=== PATIENT | male | born 1995 | race Caucasian/White ===

== ENCOUNTER 2020-01-26 13:54 | Emergency (ER) | payer OTHER ==
[~2020-01-26] VITALS: Ht 180.3 cm; Wt 75.0 kg
[2020-01-26] MEDS ORDERED: NAPROXEN 500 MG TABLET PO STA (14:52)
--- NOTE | 2020-01-26 14:56 | PHYS DOC ---
Past Medical History Past Medical History: No Pertinent History Past Surgical History: Tonsillectomy Smoking Status: Current Every Day Smoker Alcohol Use: None General Adult EDM: Chief Complaint: LACERATION/AVULSION HPI: HPI: Patient is a 24 year old male who presents to the emergency department via EMS with complaints of a laceration to his left thumb. Patient states he was using a box knife while he was at work when he accidentally cut his thumb. He denies any numbness, or tingling of the affected finger. He reports increased pain with range of motion. Patient currently rates his pain a 7 out of 10 on the pain scale, the pain is worse with movement, there are no alleviating factors. He denies taking any medications prior to arrival for relief of pain. Review of Systems: Review of Systems: Constitutional: Denies fever or chills. [] Musculoskeletal: See HPI Integument: See HPI Neurologic: Denies headache, focal weakness or sensory changes. [] Psychiatric: Denies depression or anxiety. [] Heart Score: Risk Factors: Risk Factors: DM, Current or recent (<one month) smoker, HTN, HLP, family history of CAD, obesity. Risk Scores: Score 0 - 3: 2.5% MACE over next 6 weeks - Discharge Home Score 4 - 6: 20.3% MACE over next 6 weeks - Admit for Clinical Observation Score 7 - 10: 72.7% MACE over next 6 weeks - Early Invasive Strategies Allergies: Allergies: Allergies Coded Allergies Type Severity Reaction Last Updated Verified No Known Drug Allergies 01/26/20 No Physical Exam: PE: Constitutional: Well developed, well nourished, no acute distress, non-toxic appearance, anxious. [] HENT: Normocephalic, atraumatic, bilateral external ears normal, nose normal. [] Eyes: PERRLA, EOMI, conjunctiva normal, no discharge. [] Neck: Normal range of motion, no stridor. [] Cardiovascular:Heart rate regular rhythm Lungs & Thorax: Respirations even and unlabored, no retractions, no respiratory distress Skin: Warm, dry, no erythema, no rash; 3 cm laceration to the proximal portion of the palmar first digit, no obvious deformity, no visible foreign body, full extension and flexion of the affected digit.. [] Extremities: No cyanosis, ROM intact, no edema. [] Neurologic: Alert and oriented X 3, no focal deficits noted. [] Psychologic: Affect normal, judgement normal, mood normal. [] Current Patient Data: Vital Signs: Vital Signs Date Time Temp Pulse Resp B/P (MAP) Pulse Ox O2 Delivery O2 Flow Rate FiO2 01/26/20 14:17 97.5 74 18 110/69 (83) 100 Room Air 97.5 EKG: EKG: [] Radiology/Procedures: Radiology/Procedures: PROCEDURE: FINGER(S) LEFT EXAM: 3 views left thumb DATE: 01/26/2020 2:49 PM INDICATION: Left thumb cut with box knife COMPARISON: No Prior FINDINGS/ IMPRESSION: Soft tissue focus of gas is seen at the palmar aspect of the thumb IP joint with moderate associated soft tissue swelling consistent with penetrating injury. No definite retained radiopaque foreign body is seen. No acute fracture or dislocation. Of note, the full extent of soft tissue injury, including possible tendinous injury, cannot be accurately assessed by radiographs. Laceration Repair by me: Anesthesia: 1% lidocaine locally Location: Left thumb Tendon/Joint/Nerves: No injury Foreign body: None detected after copious irrigation and exploration with chlorhexidine scrub and over 200 mL of normal saline Technique: 6 Simple Interrupted Sutures with 4-0 Ethilon Complexity: No subcutaneous sutures/mucosal repair/edge excision Post Closure Length: 3 cm Patient's bleeding was easily controlled in the department and there is no indication of anemia. No evidence of compartment syndrome, neurologic injury, vascular injury, open joint, tendon laceration, or foreign body. Patient is appropriate for outpatient follow up. [] Course & Med Decision Making: Course & Med Decision Making Pertinent Labs and Imaging studies reviewed. (See chart for details) [] Dragon Disclaimer: Dragon Disclaimer: This electronic medical record was generated, in whole or in part, using a voice recognition dictation system. Departure Departure Impression: Primary Impression: Laceration of thumb without foreign body without damage to nail Qualified Codes: S61.012A - Laceration without foreign body of left thumb without damage to nail, initial encounter Additional Impression: Need for Tdap vaccination Disposition: HOME, SELF-CARE Condition: STABLE Referrals: NO PCP (PCP) Patient Instructions: Laceration Care, Adult, [id number], VIS, Tetanus, Dip htheria, and Pertussis (Tdap) - [facility] Additional Instructions: Fill the prescriptions and use them as directed. Keep the area clean and dry. You may take Tylenol or ibuprofen as needed for pain. Keep the dressing that was placed today on for 24 hours then change the dressing twice a day and apply antibiotic ointment to the area. Wear the splint that was applied until sutures have been removed follow-up with your primary care doctor, or return to the emergency room in 14 days to have the sutures removed, sooner if you develop signs of infection including: redness, warmth, drainage, or a fever. Scripts Mupirocin (MUPIROCIN OINTMENT) 22 Gm Oint...g. 1 HUMBLE TP BID for WOUND CARE for 10 Days, #1 TUBE 0 Refills Prov: MARIA LUZ DENNISON APRN 01/26/20 Cephalexin (KEFLEX) 500 Mg Capsule 500 MG PO TID for 7 Days, #21 CAP 0 Refills Prov: MARIA LUZ DENNISON APRN 01/26/20 Justicifation of Admission Dx: Justifications for Admission: Justification of Admission Dx: N/A Splinting Splinting : Location: Left thumb Pre-Made Type: metal (Aluminum finger splint) Pre-Proc Neuro Vasc Exam: normal Post-Proc Neuro Vasc Exam: normal, unchanged from pre-exam MARIA LUZ DENNISON APRN Jan 26, 2020 14:55
[2020-01-26] MEDS ORDERED: NEOMY/BACITR/POLYMYXIN OINT PACKET. TP ONE (15:00)
[2020-01-26] MEDS ORDERED: LIDOCAINE 1% PF 2 ML VIAL. INJ ONE (15:00)
[2020-01-26] MEDS ORDERED: DIPH,PERTUSS(ACELL),TET VAC/PF 0.5 ML SYRINGE. VAX IM ONE (15:00)
--- NOTE | 2020-01-26 15:17 | RAD ---
EXAM: 3 views left thumb DATE: 01/26/2020 2:49 PM INDICATION: Left thumb cut with box knife COMPARISON: No Prior FINDINGS/ IMPRESSION: Soft tissue focus of gas is seen at the palmar aspect of the thumb IP joint with moderate associated soft tissue swelling consistent with penetrating injury. No definite retained radiopaque foreign body is seen. No acute fracture or dislocation. Of note, the full extent of soft tissue injury, including possible tendinous injury, cannot be accurately assessed by radiographs. Electronically signed by: Dg Sin MD (01/26/2020 3:15 PM) [facility]
[2020-01-26 16:06] VITALS: BP 114/63
[2020-01-26] MEDS ORDERED: MUPI22OI2 TP (16:26)
[2020-01-26] MEDS ORDERED: CEPH-264 PO (16:26)
== END 2020-01-26 16:34 | disposition home or self-care (01) ==
LOC: ER 13:54
DX: S61.012A Laceration without foreign body of left thumb without damage to nail, initial encounter (principal); F17.200 Nicotine dependence, unspecified, uncomplicated; Z90.89 Acquired absence of other organs; W26.0XXA Contact with knife, initial encounter; Y93.89 Activity, other specified; Y92.89 Other specified places as the place of occurrence of the external cause; Y99.8 Other external cause status
CPT/HCPCS: 12002; 73140; 90471; 90715; 99285; J3490